=== PATIENT | female | born 1990 | race Caucasian/White ===

== ENCOUNTER 2024-07-19 19:58 | Emergency (ER) | payer BC ==
[~2024-07-19] VITALS: Ht 165.1 cm; Wt 94.8 kg
[2024-07-19] MEDS ORDERED: ONDA4TAB11 PO (20:38)
[2024-07-19 20:46] LABS: BASOPHILS % (AUTO) 0.6 % (0.0-2.0); EOSINOPHILS # (AUTO) 0.1 K/uL (0.0-0.7); EOSINOPHILS % (AUTO) 1.5 % (0.0-7.0); HEMATOCRIT 41.1 % (31.2-41.9); HEMOGLOBIN 14.1 g/dL (10.9-14.3); LYMPHOCYTES # (AUTO) 2.6 K/uL (0.8-4.8); LYMPHOCYTES % (AUTO) 33.3 % (20.5-51.5); MEAN CORPUSCULAR HEMOGLOBIN 33.5 uug (24.7-32.8); MEAN CORPUSCULAR HGB CONC 34 g/dL (32.3-35.6); MEAN CORPUSCULAR VOLUME 97.8 fL (75.5-95.3); MONOCYTES # (AUTO) 0.5 K/uL (0.1-1.30); MONOCYTES % (AUTO) 5.8 % (0.0-11.0); NEUTROPHILS # (AUTO) 4.7 K/uL (1.8-8.9); NEUTROPHILS % (AUTO) 58.8 % (38.5-71.5); PLATELET COUNT (AUTO) 267 K/uL (179-408); RED BLOOD CELL COUNT(AUTO) 4.21 MIL/uL (3.63-4.92); RED CELL DISTRIBUTION WIDTH 12.8 % (12.3-17.7); WHITE BLOOD COUNT (AUTO) 7.9 K/uL (3.8-11.8)
[2024-07-19] MEDS: IV NORMAL SALINE 1000 ML BAG IV ONE (20:47)
[2024-07-19 20:55] LABS: DIFFERENTIAL COMMENT 1
[2024-07-19 21:00] LABS: CALCIUM 8.9 mg/dL (8.5-10.1); CREATININE 0.6 mg/dL (0.6-1.3); POTASSIUM 4.5 mmol/L (3.5-5.1)
[2024-07-19 21:06] LABS: ALBUMIN 3.9 g/dL (3.4-5.0); BILIRUBIN,DIRECT 0.1 mg/dL (0.0-0.2); BILIRUBIN,TOTAL 0.2 mg/dL (0.2-1.0); TOTAL PROTEIN, SERUM 6.8 g/dL (6.4-8.2)
[2024-07-19] MEDS ORDERED: ONDANSETRON 4 MG/2 ML VIAL ONE (21:16)
[2024-07-19] MEDS: ONDANSETRON 4 MG/2 ML VIAL IV ONE (21:18)
[2024-07-19 22:19] VITALS: BP 110/76; O2SAT 99
== END 2024-07-19 22:19 | disposition home or self-care (01) ==
LOC: ER 19:58
DX: R55 Syncope and collapse (principal); R11.0 Nausea; K21.9 Gastro-esophageal reflux disease without esophagitis; F32.A Depression, unspecified; F41.9 Anxiety disorder, unspecified; Z90.49 Acquired absence of other specified parts of digestive tract; Z91.041 Radiographic dye allergy status; Z87.448 Personal history of other diseases of urinary system
CPT/HCPCS: 99284; 96374; 96361; 80076; 80048; 85025; 36415; 93005; J2405; J7040; A4606; A4663